=== PATIENT | male | born 1960 | race Caucasian/White ===

== ENCOUNTER 2017-06-20 08:41 | Day surgery (SDC) | payer BC ==
[2017-06-16 15:58] VITALS: BMI 51.7
[~2017-06-20 08:41] MED LIST: LACTATED RINGERS 1,000 ML IV SCH; LIDOCAINE 1% 20 ML VIAL (10MG/ML) FOR IV START INTRADERMA PRN
[2017-06-20 10:11] VITALS: TEMP 98.7
[2017-06-20 10:20] LABS: Glucose,Whole Blood 149 mg/dL (75-99)
[2017-06-20] MEDS ORDERED: PROPOFOL 10 MG/ML 20 ML VIAL IV ONE (10:33)
[2017-06-20] MEDS ORDERED: LIDOCAINE 1% INJ 10MG/ML (20 ML MDV) ONE (10:33)
--- NOTE | 2017-06-20 11:03 | P.PCN ---
Date of Procedure: 06/20/17 Preoperative Diagnosis: Postoperative Diagnosis: Procedure(s) Performed: Procedure: Total colonoscopy. Preoperative diagnosis: Screening for neoplasia. Postoperative diagnosis: Low-grade internal hemorrhoids not bleeding at the time of the exam, otherwise, exam within normal limits. Preparation: HalfLytely prep. Sedation: Was provided by anesthesia. Brief clinical history: The patient is a 57-year-old male who is referred for this evaluation for screening for neoplasia age being his risk factor. There is no family history of colon cancer. He has no abdominal complaints or anemia. His prior exam was around 8 years ago. He had a recent episode of rectal bleeding. Procedure: With the patient on his left lateral decubitus position and after informed consent and adequate sedation, the perianal area was inspected and it did not show any fissures or fistulas. There were no masses felt on digital rectal examination. The Olympus CFQ 160L video colonoscope was then inserted in the rectum in the usual fashion and advanced to the cecum. The preparation was good. The mucosa appeared healthy. No definite diverticular orifices were noted and there was no polyps or tumors. I retroflexed the endoscope in the rectum before the endoscope was withdrawn. Low-grade internal hemorrhoids were noted but there was no evidence of bleeding. The patient tolerated the procedure well. Plan: The patient was reassured. Discussed dietary measures and local care for hemorrhoids. In the absence of family history of colon cancer of finding of polyps I recommended repeat exam in 10 years. He will follow up with you as planned. Implants: Indications for Procedure: Operative Findings: Description of Procedure:
[2017-06-20 11:08] LABS: Glucose,Whole Blood 143 mg/dL (75-99)
[2017-06-20 11:14] VITALS: BP 132/79; PULSE 74; RESP 18
== END 2017-06-20 11:35 | disposition home or self-care (01) ==
LOC: ORWHC2ENDO 08:41
DX: Z12.11 Encounter for screening for malignant neoplasm of colon (principal); K64.8 Other hemorrhoids; E11.9 Type 2 diabetes mellitus without complications; I10 Essential (primary) hypertension; M19.90 Unspecified osteoarthritis, unspecified site; G47.33 Obstructive sleep apnea (adult) (pediatric); Z99.89 Dependence on other enabling machines and devices; E66.9 Obesity, unspecified; Z79.2 Long term (current) use of antibiotics; Z79.84 Long term (current) use of oral hypoglycemic drugs; Z79.1 Long term (current) use of non-steroidal anti-inflammatories (NSAID); Z79.899 Other long term (current) drug therapy; Z88.8 Allergy status to other drugs, medicaments and biological substances
CPT/HCPCS: J2001; J2704; G0121; 45378

== ENCOUNTER → 2017-06-28 | Outpatient (CLI) | payer BC ==
[2017-06-28 11:30] LABS: Basophils % (A) 0 %; CH 28.6; CHCM 32.3; Eosinophils # (A) 0.2 k/uL (0-0.7); Eosinophils % (A) 3 %; HCT 43.3 % (39.0-53.0); HDW 2.44; HGB 14.3 gm/dL (13.0-17.5); Luc # (Auto) 0.25; Luc % (Auto) 3; Lymphocytes # (A) 1.7 k/uL (1.0-4.8); Lymphocytes % (A) 23 %; MCH 29.3 pg (25.0-35.0); MCV 88.8 fL (80.0-100.0); Mean Platelet Volume 6.5; Monocytes # (A) 0.4 k/uL (0-1.0); Monocytes % (A) 6 %; Neutrophils # (A) 4.8 k/uL (1.3-7.7); Neutrophils % (A) 65 %; RBC 4.87 m/uL (4.30-5.90); RDW 13.4 % (11.5-15.5); WBC 7.4 k/uL (3.8-10.6)
[2017-06-28 11:35] LABS: Anion Gap 12 mmol/L; Blood Urea Nitrogen 19 mg/dL (9-20); Calcium 9.6 mg/dL (8.4-10.2); Carbon Dioxide 23 mmol/L (22-30); Chloride 103 mmol/L (98-107); Glucose 203 mg/dL (74-99); Non-African American GFR(MDRD) >60 (>60 ml/min/1.73 sqM); Potassium 4.6 mmol/L (3.5-5.1); Sodium 138 mmol/L (137-145)
== END | disposition home or self-care (01) ==
LOC: LABPAT 10:46
PROVIDERS: ATTEND Physician Assistant
DX: Z01.812 Encounter for preprocedural laboratory examination (principal); N43.0 Encysted hydrocele; E11.9 Type 2 diabetes mellitus without complications; I10 Essential (primary) hypertension
CPT/HCPCS: 36415; 80048; 85025

== ENCOUNTER 2017-07-04 10:44 | Day surgery (SDC) | payer BC ==
[2017-06-28 13:07] VITALS: BMI 51.7
[~2017-07-04 10:44] MED LIST changes: +HYDROmorphone 1 MG/ML 1 ML SYRINGE IVP PRN; -LIDOCAINE 1% 20 ML VIAL (10MG/ML) FOR IV START INTRADERMA PRN; +Pre Op ABX Message 1 EACH MISC MISCELLANE ONE; +fentaNYL (PF) 50 MCG/ML 2 ML AMP IV PRN
[2017-07-04] MEDS ORDERED: LIDOCAINE 1% 20 ML VIAL (10MG/ML) FOR IV START INTRADERMA ONE (11:29)
[2017-07-04 11:46] LABS: Glucose,Whole Blood 132 mg/dL (75-99)
[2017-07-04] MEDS ORDERED: DEXAMETHASONE SOD PHOSPHATE 10 MG/ML 1 ML VIAL IV ONE (12:00)
[2017-07-04] MEDS ORDERED: ONDANSETRON 4 MG/2 ML VIAL IVP ONE (12:00)
[2017-07-04] MEDS ORDERED: MIDAZOLAM 2 MG/2 ML VIAL IVP ONE (12:06)
[2017-07-04] MEDS ORDERED: fentaNYL (PF) 50 MCG/ML 2 ML AMP ONE (12:35)
[2017-07-04] MEDS ORDERED: MIDAZOLAM 2 MG/2 ML VIAL ONE (12:35)
[2017-07-04] MEDS ORDERED: PROPOFOL 10 MG/ML 20 ML VIAL IV ONE (12:35)
[2017-07-04] MEDS ORDERED: LACTATED RINGERS 1,000 ML IV ONE (12:57)
[2017-07-04 13:52] VITALS: TEMP 97.3
--- NOTE | 2017-07-04 13:55 | P.OP ---
Date of Procedure: 07/04/17 Preoperative Diagnosis: Left Hydrocele Postoperative Diagnosis: Left Hydrocele with history of bleeding Procedure(s) Performed: -LEFT HYDROCELE PLICATION Implants: Anesthesia: spinal Surgeon: Da Conti Pathology: none sent Condition: stable Disposition: PACU Indications for Procedure: The patient is a 57-year-old male who developed a left hydrocele several years following a nephrectomy. The patient noted increased pain and swelling approximately 3 weeks ago and at the present time the hydrocele measures 7 or 8 cm in diameter. The patient has requested left hydrocele plication for treatment. Operative Findings: Description of Procedure: The patient was taken gapping suite where adequate spinal anesthesia was instituted. The placement was placed in the supine position. Pneumatic compression stockings were applied to the lower legs. The scrotum penis and groins were prepped with Betadine soap painted with Betadine solution and draped in a sterile fashion. A transverse incision was made in the left anterior scrotum. Bleeding vessels were controlled using electrocautery. His electrocautery the incision was carried down into the hydrocele space. 200 mL of brownish blood stained fluid drained from the hydrocele space. The left testicle was everted from the scrotum. Old clot was adherent to the superior portion of the testicle and epididymis and there appeared to be considerable thickening of the hydrocele sac. The demarcation between the testicle, epididymis and hydrocele sac was difficult due to the edema. No gross abnormality of the testicle was noted. The hydrocele sac was then plicated onto itself using 2-0 chromic placed in a radial fashion. The testicle was then returned to its normal anatomic position. Due to the inflammation it was elected to place a 1/4 inch Bethel drain in the hydrocele space. The drain was then passed through the skin through a separate incision and anchored with 2 -0 chromic. The deep tissue of the scrotum was closed using running 3-0 chromic. Skin was closed using 3-0 chromic placed in a running vertical mattress fashion. Sterile dressing was then applied. The patient tolerated the procedure well and left the operative room awake and in satisfactory addition. Blood loss was less than 5 mL. Final sponge, needle and instrument counts were reported correct was correct.
[2017-07-04 14:21] LABS: Glucose,Whole Blood 164 mg/dL (75-99)
[2017-07-04 16:58] VITALS: BP 144/92; PULSE 92; RESP 16
== END 2017-07-04 18:15 | disposition home or self-care (01) ==
LOC: OR 10:44
PROVIDERS: ATTEND Urology
DX: N43.0 Encysted hydrocele (principal); E11.9 Type 2 diabetes mellitus without complications; E66.01 Morbid (severe) obesity due to excess calories; Z68.43 Body mass index [BMI] 50.0-59.9, adult; M51.36 Other intervertebral disc degeneration, lumbar region; I10 Essential (primary) hypertension; G47.33 Obstructive sleep apnea (adult) (pediatric); Z79.2 Long term (current) use of antibiotics; Z79.84 Long term (current) use of oral hypoglycemic drugs; Z79.899 Other long term (current) drug therapy; Z88.1 Allergy status to other antibiotic agents; Z90.5 Acquired absence of kidney; Z96.653 Presence of artificial knee joint, bilateral
CPT/HCPCS: 55500; J2250; J1100; J2405; J3010; J2704

== ENCOUNTER → 2019-10-19 | Outpatient (CLI) | payer OTHER ==
--- NOTE | 2019-10-23 10:39 | P.ARTDOP ---
Arterial Doppler LOWER EXTREMITY ARTERIAL DOPPLER: DATE OF SERVICE: 10/19/2019 Reason for study: Bilateral foot numbness. Doppler waveforms: Multiphasic bilaterally throughout. Pulse volume recording: []. Pressure gradients: None. Ankle-brachial indices: Cannot be occluded either side. Toe pressures: [] on the right, [] on the left Impression: Appears to be normal flow. Inability to occlude for ankle-brachial indices suggests nonhemodynamically significant calcific wall disease, clinical correlation recommended.
== END | disposition home or self-care (01) ==
LOC: RADUSWWP 11:04
PROVIDERS: ATTEND Family Medicine
DX: I73.9 Peripheral vascular disease, unspecified (principal)
CPT/HCPCS: 93922